=== PATIENT | male | born 1970 | race Caucasian/White ===

== ENCOUNTER 2021-09-02 05:33 | Day surgery (SDC) | payer OTHER ==
[~2021-09-02] VITALS: Ht 162.6 cm; Wt 81.8 kg
[~2021-09-02 05:33] MED LIST: ASPI-1444 PO; CILO100T PO; EMPA25TA PO; LEVO-170 PO; LISI-658 PO; METF-1211 PO; SIMV-260 PO; SODIUM CHLORIDE 0.9% 1,000 ML IV ONE
[2021-09-02 06:00] LABS: COVID AG,FIA SOURCE NASAL SWAB
[2021-09-02] MEDS ORDERED: SODIUM CHLORIDE 0.9% 1,000 ML ONE (06:38)
[2021-09-02 06:50] LABS: BASOPHILS % (AUTO) 0.9 % (0.0-2.0); EOSINOPHILS % (AUTO) 11.7 % (1.0-6.0); HEMATOCRIT 35.8 % (41-53); HEMOGLOBIN 12.2 g/dL (13.5-17.5); LYMPHOCYTES # (AUTO) 1.2 K/uL (1.0-4.8); LYMPHOCYTES % (AUTO) 16.3 % (22.0-44.0); MEAN CORPUSCULAR HEMOGLOBIN 31.5 pg (26.0-34.0); MEAN CORPUSCULAR HGB CONC 34.1 G/dL (31.0-37.0); MEAN CORPUSCULAR VOLUME 92 fL (80-100); MONOCYTES # (AUTO) 0.7 K/uL (0.1-1.0); MONOCYTES % (AUTO) 9.7 % (2.0-9.0); NEUTROPHILS # (AUTO) 4.5 K/uL (1.8-7.7); NEUTROPHILS % (AUTO) 61.4 % (40.0-70.0); PLATELET COUNT (AUTO) 351 K/uL (150-450); RED BLOOD CELL COUNT(AUTO) 3.88 MIL/uL (4.50-5.90); RED CELL DISTRIBUTION WIDTH 14.4 % (11.5-14.5)
[2021-09-02 07:07] LABS: ALBUMIN 3.9 g/dL (3.4-5.0); BILIRUBIN,TOTAL 0.2 mg/dL (0.1-1.0); CALCIUM, TOTAL 8.9 mg/dL (8.8-10.5); CREATININE 1.72 mg/dL (0.60-1.30); TOTAL PROTEIN, SERUM 7.4 g/dL (6.4-8.2)
[2021-09-02 07:13] LABS: POTASSIUM 6.2 mmol/L (3.5-5.1)
[2021-09-02] MEDS ORDERED: LIDOCAINE/PF 1% 30 ML VIAL ONE (07:14)
[2021-09-02] MEDS ORDERED: IODIXANOL 320 MG/ML 100 ML VIAL ONE (07:14)
[2021-09-02] MEDS ORDERED: IODIXANOL 320 MG/ML 150 ML VIAL ONE ×2 (07:14→07:42)
[2021-09-02] MEDS ORDERED: SODIUM BICARBONATE 50 MEQ/50 ML VIAL ONE (07:14)
[2021-09-02] MEDS ORDERED: HEPARIN SODIUM 1000 UNITS/NS 1,000 ML ONE (07:14)
[2021-09-02] MEDS ORDERED: IODIXANOL 320 MG/ML 50 ML VIAL ONE (07:14)
[2021-09-02 07:17] LABS: INR 0.9 (0.9-1.1); PROTHROMBIN TIME 9.8 SEC (9.4-11.6)
[2021-09-02] MEDS ORDERED: HEPARIN SODIUM 1000 UNITS/NS 1,000 ML IARTER ONE (08:00)
[2021-09-02] MEDS ORDERED: SODIUM CHLORIDE 0.9% 500 ML IV ONE (08:00)
== END 2021-09-02 10:50 | disposition home or self-care (01) ==
LOC: SDS 05:33
PROVIDERS: ATTEND Radiology Vascular & Interventional Radiology
DX: E11.51 Type 2 diabetes mellitus with diabetic peripheral angiopathy without gangrene (principal); Z53.8 Procedure and treatment not carried out for other reasons; I70.213 Atherosclerosis of native arteries of extremities with intermittent claudication, bilateral legs; I10 Essential (primary) hypertension; E78.00 Pure hypercholesterolemia, unspecified; Z79.899 Other long term (current) drug therapy; Z89.511 Acquired absence of right leg below knee; Z98.890 Other specified postprocedural states; Z79.01 Long term (current) use of anticoagulants; Z72.89 Other problems related to lifestyle
CPT/HCPCS: 36415; 80053; 84132; 85025; 85610; 85730; 87426; C9803; J1644; J3490 ×2; J7030; Q9967